=== PATIENT | male | born 1955 | race Caucasian/White ===

== ENCOUNTER 2018-06-14 03:37 | Emergency (ER) | payer OTHER ==
[2018-06-14] MEDS ORDERED: ASPIRIN 81 MG CHEWABLE TAB PO ONE (04:03)
[2018-06-14] MEDS ORDERED: NITROGLYCERIN 0.4 MG BTL SL ONE (04:03)
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
[2018-06-14 04:15] LABS: PLATELET COUNT 239 10^3/uL (150-400)
[2018-06-14] MEDS ORDERED: KETOROLAC 15 MG/1 ML SDV IVP ONE (04:43)
[2018-06-14 05:27] VITALS: BP 123/87
--- NOTE | 2018-06-14 05:35 | CPEKG ---
Test Reason : OPEN Blood Pressure : / mmHG Vent. Rate : 059 BPM Atrial Rate : 060 BPM P-R Int : 170 ms QRS Dur : 116 ms QT Int : 427 ms P-R-T Axes : 069 001 021 degrees QTc Int : 423 ms Sinus rhythm Nonspecific intraventricular conduction delay Confirmed by Brent Bailey ([id number]) on 06/14/2018 5:34:42 AM Referred By: PHYSICIAN ED Confirmed By:Brent Bailey
== END 2018-06-14 05:25 | disposition home or self-care (01) ==
DX: S22.31XA Fracture of one rib, right side, initial encounter for closed fracture (principal); V19.9XXA Pedal cyclist (driver) (passenger) injured in unspecified traffic accident, initial encounter; Y93.55 Activity, bike riding
CPT/HCPCS: 84484-ER; 96374; J1885